=== PATIENT | female | born 1980 | race Caucasian/White ===

== ENCOUNTER 2017-11-28 09:43 | Outpatient (CLI) | payer MEDICAID ==
[~2017-11-28] VITALS: Ht 167.6 cm; Wt 81.0 kg
[~2017-11-28 09:43] MED LIST: AMITRIPTYLINE H10 M1 PO; BYETTA 10M600 MCG/SY SC; IMITREX 25MG TA25 MG PO; INDERAL40 MG PO; TAMBOCOR50 MG PO; TIAZAC240 MG PO; TOPROL XL 50MG50 MG PO; ZESTRIL 5MG5 MG PO; [UNRECOGNIZED DRUG - OTHER] PO
[2017-11-28] MEDS ORDERED: XANAX 0.5MG0.5 MG PO (10:14)
[2017-11-28] MEDS ORDERED: MINOCYCLIN100 MG/CAP PO (10:14)
[2017-11-28] MEDS ORDERED: PERCOCET 325 MG1 TA2 PO (10:15)
[2017-11-28 10:19] LABS: HEMATOCRIT 37.1 % (37.0-47.0); HEMOGLOBIN 12.5 g/dl (12.5-16.0); MEAN CELL VOLUME 86 fl (80.0-100.0); MEAN CORPUSCULAR HEMOGLOBIN 29 pg (27.0-31.0); MEAN CORPUSCULAR HGB CONC 34 g/dl (33.0-37.0); MEAN PLATELET VOLUME 10.3 fl (7.4-10.4); PLATELET COUNT 254 K/mm3 (130-400); RED BLOOD COUNT 4.34 M/mm3 (4.10-5.30); REDCELL DISTRIBUTION WIDTH-CV 12.9 % (11.5-14.5)
[2017-11-28 10:36] VITALS: BP 124/51; PULSE 70; TEMP 98
[2017-11-28 10:37] LABS: INR 1.1 (0.8-3.0); PROTHROMBIN TIME 12.7 SECONDS (9.7-12.8)
== END 2017-11-28 12:14 | disposition home or self-care (01) ==
LOC: COL.CAR 09:43
PROVIDERS: Internal Medicine Interventional Cardiology
DX: I48.0 Paroxysmal atrial fibrillation (principal); Z90.49 Acquired absence of other specified parts of digestive tract; Z82.49 Family history of ischemic heart disease and other diseases of the circulatory system
CPT/HCPCS: C1764

== ENCOUNTER 2022-02-14 12:23 | Day surgery (SDC) | payer MEDICAID ==
[~2022-02-14] VITALS: Ht 167.6 cm; Wt 78.2 kg
[~2022-02-14 12:23] MED LIST changes: +MINOCYCLIN100 MG/CAP PO; +PERCOCET 325 MG1 TA2 PO; +XANAX 0.5MG0.5 MG PO
[2022-02-14 14:12] VITALS: BP 119/84; PULSE 83; TEMP 97.5
[2022-02-14] MEDS ORDERED: GLUCOPHAGE1000 MG PO (14:15)
[2022-02-14] MEDS ORDERED: HCTZ 25MG TAB25 MG PO (14:16)
--- NOTE | 2022-02-14 14:27 | NUR ---
Pt to procedure,Report to Mark russo.
[2022-02-14 14:50] VITALS: BP 123/69; PULSE 88
--- NOTE | 2022-02-14 15:01 | NUR ---
SEE MERGE FOR VITAL SIGNS, ASSESSMENTS, INTERVENTIONS AND MEDICATIONS GIVEN.
[2022-02-14 15:13] VITALS: BP 118/65; PULSE 87
[2022-02-14 15:17] VITALS: BP 115/52; PULSE 86
--- NOTE | 2022-02-14 15:32 | NUR ---
discharge instructions given to pt.pt verbalizes understanding.
--- NOTE | 2022-02-14 15:50 | NUR ---
Pt escorted out via wheelchair by this nurse.
== END 2022-02-14 16:27 ==
LOC: COL.CAR 12:23
DX: Z45.09 Encounter for adjustment and management of other cardiac device (principal); I48.0 Paroxysmal atrial fibrillation; I10 Essential (primary) hypertension; I47.1 Supraventricular tachycardia; R60.0 Localized edema; F17.210 Nicotine dependence, cigarettes, uncomplicated; Z79.899 Other long term (current) drug therapy; Z95.818 Presence of other cardiac implants and grafts; Z95.5 Presence of coronary angioplasty implant and graft
CPT/HCPCS: J2250; J3010